=== PATIENT | male | born 1995 | race American Indian/Alaskan Native ===

== ENCOUNTER 2019-09-28 20:18 | Emergency (ER) | payer SELFPAY ==
--- NOTE | 2019-09-28 20:19 | PDOC ---
History of Present Illness - General Chief Complaint: Nausea/Vomiting Stated Complaint: VOMITING X 3 DAYS/PAIN Time Seen by Provider: 09/28/19 20:19 History Source: Patient Exam Limitations: No Limitations - History of Present Illness Initial Comments: 09/28/19 21:13 This is a 23-year-old male who comes in with his father for evaluation of nausea vomiting and upper respiratory tract type symptoms for 3 days. Patient has a twin that had similar symptoms that have now since resolved with the exception of mild residual cough. As per patient he has had multiple episodes of forceful vomiting with some questionable blood-tinged vomitus. Patient had some abdominal pain in the lower abdomen but says it has since resolved. Patient also said that his stool has been darker than usual. But no bright red blood in it. Patient denies any rectal pain. Patient denies any diarrhea. Allergies: as per nursing notes Past Medical History: none Social history: Lives with family. No smoking. No alcohol. No illicit drugs. Surgical history: None General: No fevers or chills, no weakness, no weight loss HEENT: No change in vision. No sore throat,. No ear pain CardioVascular: no chest discomfort. No shortness of breath Respiratory:No cough, or wheezing. Gastrointestinal: + nausea, + vomiting, no diarrhea or constipation, No rectal bleeding Genitourinary: No dysuria, hematuria, or frequency Musculoskeletal: No joint or muscle pain or swelling Neurologic: No headache, vertigo, dizziness or loss of consciousness Psychiatric: nor depression Skin: No rashes or easy bruising Endocrine: no increased thirst or abnormal weight change Allergic: no skin or latex allergy All other systems reviewed and normal Exam: General: Well-nourished well-developed individual, no acute distress HEENT: Throat: Normal, tonsils normal, no erythema or exudate Neck: Supple, no meningeal signs, no lymphadenopathy Mucous membranes are dry. Eyes::Pupils equal reactive and round, extraocular motion intact Chest: Nontender to palpation Cardiac: S1-S2 normal, regular rate and rhythm, no murmurs rubs or gallops Respiratory: Lungs clear to auscultation bilateral Abdomen: Soft, nondistended, normal bowel sounds, there is no tenderness on palpation diffusely Extremities: Warm, dry, no cyanosis, clubbing, or edema Skin: No rashes Neuro: Alert and oriented x3, CN II - XII intact, nonfocal exam with normal strength, normal sensation, normal reflexes, normal gait, Psych: Normal mood and affect Assessment and plan: This is a 23-year-old male who comes in complaining of nausea and vomiting. Patient does not have any diarrhea. Patient Does appear to be dry clinically. Will hydrate up with IV fluids until patient is well-hydrated. Basic labs sent CBC, comp. Patient given Zofran and Pepcid IV. 09/28/19 22:24 Patient feels much better able to tolerate p.o.'s patient's lab work is unremarkable his white count is slightly depressed otherwise his H&H indicate some dehydration patient has had 2 L of fluid I will send a prescription for Zofran to his pharmacy and patient discharged home with his father Past History - Past Medical History Allergies/Adverse Reactions: Allergies Allergy/AdvReac Type Severity Reaction Status Date / Time No Known Allergies Allergy Verified 09/28/19 20:19 Home Medications: Ambulatory Orders Ondansetron [Zofran *Odt*] 8 mg SL TID PRN #12 od.tablet 09/28/19 - Immunization History Immunization Up to Date: Yes - Psycho Social/Smoking Cessation Hx Smoking History: Current some day smoker Have you smoked in the past 12 months: Yes Number of Cigarettes Smoked Daily: 1 Hx Alcohol Use: No Drug/Substance Use Hx: No Substance Use Type: None ED Treatment Course - LABORATORY CBC & Chemistry Diagram: 09/28/19 20:56 09/28/19 20:56 Discharge - Discharge Information Problems reviewed: Yes Clinical Impression/Diagnosis: Nausea and vomiting, Dehydration Condition: Stable Disposition: HOME - Admission No - Follow up/Referral - Patient Discharge Instructions Patient Printed Discharge Instructions: DI for Vomiting -- Adult Additional Instructions: Clear liquids only for the next 6 hours.. After that if you have had no further vomiting you may have bananas, rice, applesauce, or toast. If no further vomiting for another 8 hours you may have regular food. If you vomit again then nothing to eat or drink for 2 hours. then start back with the clear liquids. Return to the emergency department immediately with ANY new, persistent or worsening symptoms. You MUST call and follow up with your doctor tomorrow if not better. Please make sure your doctor reviews the results of your emergency evaluation. Continue any medications as previously prescribed by your physician. Thank you for coming to the Emergency Department today for your care. It was a pleasure to see you today. Please note that your evaluation is INCOMPLETE until you follow-up with your doctor. - Post Discharge Activity
[2019-09-28] MEDS ORDERED: ONDANSETRON 4 MG/2 ML VIAL IVPB ONE (20:20)
[2019-09-28] MEDS ORDERED: SODIUM CHLORIDE 1,000 ML IV ONE ×2 (20:20→20:50)
[2019-09-28 20:26] VITALS: BP 119/81; PULSE 78; BMI 19.0
[2019-09-28] MEDS ORDERED: ONDANSETRON 4 MG/2 ML VIAL ONE (20:26)
[2019-09-28] MEDS ORDERED: ACETAMINOPHEN 1000 MG/100 ML VIAL (NON FORMULARY) IVPB ONE (20:39)
[2019-09-28] MEDS ORDERED: ACETAMINOPHEN INJECTION 100 ML IVPB ONE (20:49)
[2019-09-28] MEDS ORDERED: FAMOTIDINE 20 MG/50 ML IVPB 20 MG/50 ML MG IVPB ONE ×2 (21:09→21:14)
[2019-09-28 21:12] LABS: BASO % 0.1 % (0-2.0); EOS % 0.1 % (0-4.5); HEMATOCRIT 51.3 % (35.4-49); HEMOGLOBIN 17.4 GM/dl (11.7-16.9); LYMPH % 17.3 % (8-40); MCH 28.4 pg (25.7-33.7); MCHC 33.9 g/dl (32.0-35.9); MEAN CELL VOLUME 83.8 fl (80-96); MEAN PLT VOLUME 9.4 fl (7.5-11.1); MONO % 10.5 % (3.8-10.2); PLATELET COUNT 134 K/MM3 (134-434); RBC 6.12 M/mm3 (4.00-5.60); RDW 12.4 % (11.9-15.9); WHITE BLOOD COUNT 3.2 K/mm3 (4.0-10.8)
[2019-09-28 21:19] LABS: ALBUMIN 4.7 g/dl (3.4-5.0); BILIRUBIN,TOTAL 0.7 mg/dl (0.2-1); CALCIUM 8.9 mg/dl (8.5-10); CREATININE 1.1 mg/dl (0.55-1.3); TOT PROT 7.9 g/dl (6.4-8.2)
[2019-09-28 22:23] VITALS: TEMP 99
== END 2019-09-28 22:29 | disposition home or self-care (01) ==
LOC: FER 20:18
PROC: 3E033NZ Introduction of Analgesics, Hypnotics, Sedatives into Peripheral Vein, Percutaneous Approach (ICD-10-PCS; principal; 2019-09-28)
PROC: 3E033GC Introduction of Other Therapeutic Substance into Peripheral Vein, Percutaneous Approach (ICD-10-PCS; 2019-09-28)
PROC: 3E0337Z Introduction of Electrolytic and Water Balance Substance into Peripheral Vein, Percutaneous Approach (ICD-10-PCS; 2019-09-28)
DX: E86.0 Dehydration (principal); R11.2 Nausea with vomiting, unspecified; F17.210 Nicotine dependence, cigarettes, uncomplicated
CPT/HCPCS: 36415; 80053; 82272; 83690; 85025; 99282-25; J0131; J7030

== ENCOUNTER 2024-09-29 10:12 | Emergency (ER) | payer SELFPAY ==
[2024-09-29 10:38] VITALS: RESP 18
[2024-09-29] MEDS ORDERED: ACETAMINOPHEN 325 MG TABLET (FP) ONE (10:53)
[2024-09-29] MEDS ORDERED: MAG HYDROX/AL HYDROX/SIMETH 30 ML UNIT-DOSE CUP ONE ×2 (10:54→11:40)
[2024-09-29] MEDS ORDERED: FAMOTIDINE 20 MG TABLET ONE (10:54)
[2024-09-29] MEDS: ACETAMINOPHEN 325 MG TABLET (FP) PO ONE (10:59)
[2024-09-29] MEDS: MAG HYDROX/AL HYDROX/SIMETH 30 ML UNIT-DOSE CUP PO ONE ×2 (10:59→11:43)
[2024-09-29] MEDS: FAMOTIDINE 20 MG TABLET PO ONE (10:59)
[2024-09-29] MEDS ORDERED: LIDOCAINE VISCOUS 2% ORAL/TOP 15 ML UNIT-DOSE CUP ONE (11:40)
[2024-09-29] MEDS: LIDOCAINE VISCOUS 2% ORAL/TOP 15 ML UNIT-DOSE CUP MM ONE (11:43)
[2024-09-29 13:49] VITALS: BP 122/76; PULSE 76; TEMP 98.8; BMI 23.9
== END 2024-09-29 13:10 | disposition home or self-care (01) ==
LOC: FER 10:12
DX: K29.70 Gastritis, unspecified, without bleeding (principal); R10.13 Epigastric pain
CPT/HCPCS: 99283-25

== ENCOUNTER 2024-09-29 15:06 | Emergency (ER) | payer SELFPAY ==
[2024-09-29 15:13] VITALS: BP 144/87; PULSE 60; RESP 20; TEMP 99.2; BMI 20.5
[2024-09-29] MEDS: SODIUM CHLORIDE 1,000 ML IV STA (15:35)
[2024-09-29 15:47] LABS: BASO % 0.6 % (0-2.0); EOS % 0.6 % (0-4.5); HEMATOCRIT 47.2 % (35.4-49); HEMOGLOBIN 16.2 GM/dL (11.7-16.9); LYMPH % 15.3 % (8-40); MCH 28.5 pg (25.7-33.7); MCHC 34.3 g/dl (32.0-35.9); MEAN CELL VOLUME 83.1 fl (80-96); MEAN PLT VOLUME 8.1 fl (7.5-11.1); MONO % 5.9 % (3.8-10.2); NEUT % 77.6 % (42.8-82.8); PLATELET COUNT 232 10^3/uL (134-434); RBC 5.68 M/mm3 (4.00-5.60); RDW 13.6 % (11.9-15.9); WHITE BLOOD COUNT 9.3 K/mm3 (4.0-10.0)
[2024-09-29 16:11] LABS: POTASSIUM 4.1 mmol/L (3.5-5.1)
[2024-09-29 16:12] LABS: CALCIUM 9.7 mg/dL (8.5-10.1)
[2024-09-29] MEDS ORDERED: MAG HYDROX/AL HYDROX/SIMETH 30 ML UNIT-DOSE CUP ONE (16:13)
[2024-09-29] MEDS ORDERED: ONDANSETRON 4 MG/2 ML VIAL ONE (16:13)
[2024-09-29] MEDS ORDERED: ACETAMINOPHEN INJECTION 100 ML ONE (16:13)
[2024-09-29 16:14] LABS: ALBUMIN 4.2 g/dl (3.4-5.0); BLOOD UREA NITROGEN 20.8 mg/dL (7-18)
[2024-09-29] MEDS ORDERED: FAMOTIDINE 20 MG/50 ML IVPB 20 MG/50 ML MG IVPB ONE (16:14)
[2024-09-29 16:16] LABS: CREATININE 1.2 mg/dL (0.55-1.3)
[2024-09-29 16:18] LABS: BILIRUBIN,TOTAL 1.1 mg/dL (0.2-1); TOT PROT 7.6 g/dl (6.4-8.2)
[2024-09-29] MEDS: ACETAMINOPHEN 1000 MG/100 ML BAG IVPB ONE (16:25)
[2024-09-29] MEDS: FAMOTIDINE 20 MG/50 ML IVPB 20 MG/50 ML MG IVPB ONE (16:26)
[2024-09-29] MEDS: ONDANSETRON 4 MG/2 ML VIAL IVPUSH ONE (16:26)
[2024-09-29] MEDS: MAG HYDROX/AL HYDROX/SIMETH -MYLANTA- ORAL SUSPENSION PO ONE (16:59)
[2024-09-29] MEDS ORDERED: METOCLOPRAMIDE HCL INJECTION 10 MG/2 ML VIAL ONE (17:01)
[2024-09-29] MEDS: METOCLOPRAMIDE HCL INJECTION 10 MG/2 ML VIAL IVPUSH ONE (17:05)
[2024-09-29 17:20] LABS: HIV INTERPRETATION NEGATIVE (NEGATIVE)
[2024-09-29] MEDS ORDERED: POLYETHYLENE GLYCOL (HEALTHYLAX) 3350 17 GM PACKET PO ONE (18:00)
== END 2024-09-29 18:08 | disposition home or self-care (01) ==
LOC: JER 15:06
PROC: 3E033GC Introduction of Other Therapeutic Substance into Peripheral Vein, Percutaneous Approach (ICD-10-PCS; principal; 2024-09-29)
PROC: 3E033NZ Introduction of Analgesics, Hypnotics, Sedatives into Peripheral Vein, Percutaneous Approach (ICD-10-PCS; 2024-09-29)
PROC: 3E033GC Introduction of Other Therapeutic Substance into Peripheral Vein, Percutaneous Approach (ICD-10-PCS; 2024-09-29)
PROC: 3E033GC Introduction of Other Therapeutic Substance into Peripheral Vein, Percutaneous Approach (ICD-10-PCS; 2024-09-29)
DX: R10.13 Epigastric pain (principal); R11.2 Nausea with vomiting, unspecified
CPT/HCPCS: 36415; 80053; 83690; 85025; 86803; 87389; 99284-25; J0131